=== PATIENT | female | born 1970 | race Two or more races ===

== ENCOUNTER 2024-06-27 10:52 | Outpatient (REF) | payer BC, SELFPAY ==
[2024-06-27 13:35] LABS: Uric Acid 6.3 mg/dL (2.4-5.7)
[2024-06-27 14:03] LABS: Erythrocyte Sedimentation Rate 5 MM/HR (0-20)
== END 2024-06-27 10:53 | disposition home or self-care (01) ==
LOC: HO.HMGCLDS 10:52
PROVIDERS: PCP Family Medicine; Visit Provider Podiatrist
DX: M10.9 Gout, unspecified (principal)
CPT/HCPCS: 36415; 84550; 85652